=== PATIENT | male | born 1955 | race Caucasian/White ===

== ENCOUNTER 2024-05-10 08:26 | Day surgery (SDC) | payer MEDICARE ==
[~2024-05-10] VITALS: Ht 162.6 cm; Wt 72.1 kg
[~2024-05-10 08:26] MED LIST: ACET-897 PO; ALBU8.5H PO; ATOR1TAB19 PO; CEFD1CAP9 PO; ECOT81TA5 PO; FLUT1BLS8 PO; LISI5TAB11 PO; MIRA3350 PO; MULTTAB61 PO; OMEP-173 PO; ONDA-83 PO; OXYC1TAB23 PO; PREVAGEN PO; TAMS1CAP17 PO; VITMTA PO
[2024-05-10] MEDS ORDERED: LR 1,000 ML IV SCH (08:45)
[2024-05-10] MEDS: ceFAZolin SOD 2 GM in IV 1 EA IV ONE (08:45)
[2024-05-10] MEDS ORDERED: MIDAZOLAM INJ 2MG/2ML VIAL As Ordered ONE (08:53)
[2024-05-10] MEDS ORDERED: fentaNYL 100 MCG/2 ML INJECTION As Ordered ONE (08:53)
[2024-05-10] MEDS ORDERED: propofoL 200 MG/20 ML VIAL As Ordered ONE (08:54)
[2024-05-10] MEDS ORDERED: LIDOCAINE 2% 100MG/5ML SDV (FOR ANES.) As Ordered ONE (08:54)
[2024-05-10] MEDS ORDERED: ACETAMINOPHEN 1000MG 100ML IV BAG As Ordered ONE (08:54)
[2024-05-10] MEDS: ISOVUE-300 61% 100ML VIAL As Ordered ONE (09:00)
[2024-05-10] MEDS ORDERED: KETOROLAC 60MG 2ML VIAL As Ordered ONE (09:42)
[2024-05-10] MEDS: ISOVUE-M 300 61% 15ML VIAL As Ordered ONE (09:49)
[2024-05-10] MEDS ORDERED: PERCOCET 5MG/325MG TAB PO PRN (11:10)
[2024-05-10 11:40] VITALS: BP 126/76; TEMP 96.9; O2SAT 95
== END 2024-05-10 11:44 | disposition home or self-care (01) ==
LOC: M SDC 08:26
PROVIDERS: ATTEND Urology
DX: N13.2 Hydronephrosis with renal and ureteral calculous obstruction (principal); I10 Essential (primary) hypertension; J44.9 Chronic obstructive pulmonary disease, unspecified; R00.1 Bradycardia, unspecified; E78.00 Pure hypercholesterolemia, unspecified; K21.9 Gastro-esophageal reflux disease without esophagitis; Z79.899 Other long term (current) drug therapy; Z79.82 Long term (current) use of aspirin; Z79.51 Long term (current) use of inhaled steroids; Z87.891 Personal history of nicotine dependence
CPT/HCPCS: 52332; 52352; 76000; 82365; C1769; C2617; J0131; J0690; J1100; J1885; J2250; J3010; Q9967

== ENCOUNTER → 2024-10-25 | Outpatient (CLI) | payer MEDICARE | LOC: M PLARAD 13:14 | PROVIDERS: ATTEND Internal Medicine Pulmonary Disease | DX: R91.1 Solitary pulmonary nodule (principal) | CPT/HCPCS: 78815; A9552 ==

== ENCOUNTER → 2025-04-25 | Outpatient (CLI) | payer MEDICARE | LOC: M PLAIMG 08:57 | PROVIDERS: ATTEND Internal Medicine Pulmonary Disease | DX: R91.8 Other nonspecific abnormal finding of lung field (principal) ==

== ENCOUNTER → 2025-07-07 | Outpatient (CLI) | payer MEDICARE | LOC: M PLAIMG 09:20 | PROVIDERS: ATTEND Urology | DX: N20.0 Calculus of kidney (principal); Z12.5 Encounter for screening for malignant neoplasm of prostate | CPT/HCPCS: 36415; 74018; G0103 ==